=== PATIENT | male | born 1970 | race Caucasian/White ===

== ENCOUNTER 2020-09-23 15:26 | Emergency (ER) | payer MEDICAID, OTHER ==
[~2020-09-23] VITALS: Ht 172.7 cm; Wt 83.9 kg
[2020-09-23] MEDS ORDERED: IBUPROFEN 800 MG TABLET PO ONE (16:00)
[2020-09-23] MEDS ORDERED: IBUPROFEN 800 MG TABLET ONE (16:16)
[2020-09-23] MEDS ORDERED: HYDR-3972 PO (17:26)
[2020-09-23] MEDS ORDERED: IBUP-1957 PO (17:26)
--- NOTE | 2020-09-23 17:33 | NUR ---
Patient discharged to home in stable condition. No signs of acute distress noted. Written and verbal after care instructions given. took all belongings. Rx given. Patient verbalizes understanding of instructions. Stressed follow up or return to ER for worsening s/s.
[2020-09-23 17:47] VITALS: BP 119/63
== END 2020-09-23 17:33 | disposition home or self-care (01) ==
LOC: ER 15:29
DX: M77.11 Lateral epicondylitis, right elbow (principal); M19.021 Primary osteoarthritis, right elbow
CPT/HCPCS: 73060; 73080; A4663

== ENCOUNTER 2022-05-02 16:20 | Emergency (ER) | payer OTHER ==
[~2022-05-02] VITALS: Ht 170.2 cm; Wt 88.5 kg
[~2022-05-02 16:20] MED LIST: HYDR-3972 PO; IBUP-1957 PO
--- NOTE | 2022-05-02 19:54 | NUR ---
Dr. Ojeda at bedside for MSE.
[2022-05-02] MEDS ORDERED: LIDOCAINE HCL 1% 20 ML VIAL ONE (19:55)
[2022-05-02] MEDS ORDERED: LIDOCAINE HCL 1% 20 ML VIAL IJ ONE (20:00)
--- NOTE | 2022-05-02 20:00 | NUR ---
Patient received in bed. AAOx4. Came to ERT with complain of right knee pain.
[2022-05-02] MEDS ORDERED: NEOMY/BACITRA/POLYMYXIN B OINT UD PACKET TP ONE ×2 (20:58→21:15)
--- NOTE | 2022-05-02 21:15 | NUR ---
Patient discharged to home in stable condition. Written and verbal after care instructions given. Patient verbalizes understanding of instructions. Stressed follow up or return to ER for worsening s/s. patient ambulated with no difficulty. All belongings with patient.
[2022-05-02 21:16] VITALS: BP 131/77
== END 2022-05-02 21:17 | disposition home or self-care (01) ==
LOC: ER 16:20
DX: L02.415 Cutaneous abscess of right lower limb (principal)
CPT/HCPCS: 99283; 10060; 73562; J3490; A4663

== ENCOUNTER 2022-08-20 09:43 | Emergency (ER) | payer OTHER ==
[~2022-08-20] VITALS: Ht 170.2 cm; Wt 88.5 kg
[2022-08-20 10:03] LABS: *BILIRUBIN,URIN NEGATIVE (NEGATIVE); *BLOOD, URINE NEGATIVE (NEGATIVE); *CLARITY,URINE CLEAR (CLEAR); *COLOR,URINE YELLOW (YELLOW); *KETONES,URINE NEGATIVE (NEGATIVE); *UROBILINOGEN,URINE 0.2 E.U./dl (NORMAL); LEUKOCYTE ESTERASE ,URINE NEGATIVE (NEGATIVE); NITRITE, URINE NEGATIVE (NEGATIVE); UGLUCOSE NEGATIVE (NEGATIVE)
[2022-08-20] MEDS ORDERED: MUPIROCIN 2% OINT 22 GM TUBE ONE (10:20)
[2022-08-20] MEDS ORDERED: MUPIROCIN 2% OINT 22 GM TUBE TP ONE (10:30)
[2022-08-20] MEDS ORDERED: MUPI15CR TP (10:58)
--- NOTE | 2022-08-20 11:04 | NUR ---
Patient discharged to home in stable condition. Written and verbal after care instructions given. Patient verbalizes understanding of instructions. Stressed follow up or return to ER for worsening s/s.
[2022-08-20 11:05] VITALS: BP 121/67
== END 2022-08-20 11:05 | disposition home or self-care (01) ==
LOC: ER 09:43
DX: L01.00 Impetigo, unspecified (principal); R21 Rash and other nonspecific skin eruption
CPT/HCPCS: A4663

== ENCOUNTER 2022-11-30 18:52 | Emergency (ER) | payer OTHER ==
[~2022-11-30] VITALS: Ht 172.7 cm; Wt 90.7 kg
[~2022-11-30 18:52] MED LIST changes: -HYDR-3972 PO; -IBUP-1957 PO; +MUPI15CR TP
[2022-11-30] MEDS ORDERED: CEPH500T PO ×2 (19:21→19:22)
[2022-11-30 19:27] VITALS: BP 109/72; O2SAT 97
== END 2022-11-30 19:28 | disposition home or self-care (01) ==
LOC: ER 18:56
DX: L02.412 Cutaneous abscess of left axilla (principal); Z79.899 Other long term (current) drug therapy
CPT/HCPCS: A4663

== ENCOUNTER 2023-02-22 08:40 | Emergency (ER) | payer OTHER ==
[~2023-02-22] VITALS: Ht 170.2 cm; Wt 93.0 kg
[~2023-02-22 08:40] MED LIST changes: +CEPH500T PO
[2023-02-22 09:04] VITALS: O2SAT 97
[2023-02-22 10:08] LABS: BASOPHILS % (AUTO) 0.4 % (0.0-2.0); EOSINOPHILS # (AUTO) 0.1 K/uL (0.0-0.7); HEMOGLOBIN 14.2 g/dL (12.5-16.3); LYMPHOCYTES % (AUTO) 17.8 % (20.5-51.5); MEAN CORPUSCULAR HEMOGLOBIN 28.8 uug (23.8-33.4); MEAN CORPUSCULAR HGB CONC 33 g/dL (32.5-36.3); MEAN CORPUSCULAR VOLUME 87.2 fL (73.0-96.2); MONOCYTES # (AUTO) 1.3 K/uL (0.1-1.30); MONOCYTES % (AUTO) 11.7 % (0.0-11.0); NEUTROPHILS # (AUTO) 7.6 K/uL (1.8-8.9); NEUTROPHILS % (AUTO) 69.1 % (38.5-71.5); PLATELET COUNT (AUTO) 190 K/uL (152-348); RED BLOOD CELL COUNT(AUTO) 4.93 MIL/uL (4.06-5.63); RED CELL DISTRIBUTION WIDTH 13.3 % (12.1-16.2)
[2023-02-22 10:15] LABS: *BILIRUBIN,URIN NEGATIVE (NEGATIVE); *BLOOD, URINE 1+ (NEGATIVE); *CLARITY,URINE CLEAR (CLEAR); *COLOR,URINE YELLOW (YELLOW); *KETONES,URINE NEGATIVE (NEGATIVE); *PROTEIN,URINE NEGATIVE (NEGATIVE); *UROBILINOGEN,URINE 0.2 E.U./dl (NORMAL); LEUKOCYTE ESTERASE ,URINE NEGATIVE (NEGATIVE); NITRITE, URINE NEGATIVE (NEGATIVE); PH,URINE 5.5 (5.0-8.0); UGLUCOSE NEGATIVE (NEGATIVE)
[2023-02-22 10:20] LABS: CREATININE 1.3 mg/dL (0.6-1.3); MAGNESIUM 2.2 mg/dL (1.8-2.4); POTASSIUM 4.3 mmol/L (3.5-5.1); URIC ACID 6.1 mg/dL (3.5-7.2)
[2023-02-22 10:21] LABS: DIFFERENTIAL COMMENT 1
[2023-02-22 10:48] LABS: ERYTHROCYTE SEDIMENTATION RATE 55 MM/HR (0-15)
[2023-02-22 11:11] LABS: BACTERIA,URINE FEW /HPF (NONE SEEN); RBC,URINE 0-3 /HPF (0-3); SQUAMOUS EPITHELIAL CELL,UR FEW /HPF (NONE SEEN); WBC,URINE 0-3 /HPF (0-3)
[2023-02-22] MEDS ORDERED: FLAS1KIT2 TP (11:44)
[2023-02-22] MEDS ORDERED: AMOX-430 PO (11:44)
[2023-02-22] MEDS ORDERED: ACET1TAB23 PO (11:44)
[2023-02-22] MEDS ORDERED: FLAS1EAC2 TP (11:44)
== END 2023-02-22 12:43 | disposition home or self-care (01) ==
LOC: ER 08:40
DX: M19.042 Primary osteoarthritis, left hand (principal); N49.2 Inflammatory disorders of scrotum; Z79.2 Long term (current) use of antibiotics; Z79.899 Other long term (current) drug therapy
CPT/HCPCS: 36415; 73120; 83735; 84550; 85025; 85651

== ENCOUNTER 2023-06-25 08:21 | Emergency (ER) | payer OTHER ==
[~2023-06-25] VITALS: Ht 170.2 cm; Wt 90.7 kg
[~2023-06-25 08:21] MED LIST changes: +ACET1TAB23 PO; +AMOX-430 PO; +CEPH500C2 PO; +FLAS1EAC2 TP; +FLAS1KIT2 TP
[2023-06-25] MEDS ORDERED: NEOMY/BACITRA/POLYMYXIN B OINT UD PACKET TP ONE (08:33)
[2023-06-25] MEDS ORDERED: SULF1TAB48 PO (08:42)
[2023-06-25] MEDS ORDERED: IBUP-1955 PO (08:43)
[2023-06-25 08:46] VITALS: O2SAT 97
== END 2023-06-25 08:47 | disposition home or self-care (01) ==
LOC: ER 08:21
DX: L03.031 Cellulitis of right toe (principal); Z48.00 Encounter for change or removal of nonsurgical wound dressing; Z79.899 Other long term (current) drug therapy
CPT/HCPCS: A4606; A4663